=== PATIENT | female | born 1985 | race African-American/Black ===

== ENCOUNTER 2021-07-27 09:11 | Outpatient (CLI) | payer OTHER, SELFPAY ==
[2021-07-27 10:41] LABS: Hematocrit 37.1 % (37.0-47.0); Hemoglobin 12.8 g/dL (12.0-15.0); Mean Corpuscular HGB Conc 34.5 g/dl (32-36); Mean Corpuscular Hemoglobin 31.4 pg (26-34); Mean Corpuscular Volume 91.2 fl (80-100); Mean Platelet Volume 10.1 fl (7.4-10.4); Platelet Count Result 267 k/mm3 (150-375); Red Blood Count 4.07 M/mm3 (4.2-5.4); Red Cell Distribution Width 13.7 % (11.5-14.5); White Blood Count 6.4 K/mm3 (4.5-10.0)
[2021-07-27 11:18] LABS: HIV 1/2 Ab P24 Ag Result Negative (Negative)
[2021-07-27 11:27] LABS: Hepatitis B Surface Antigen Negative (Negative); Rubella IgG Antibody 79.9 IU/ML
[2021-07-29 10:41] LABS: Rapid Plasma Reagin Non-Reactive (NonReactive)
== END 2021-07-27 09:12 | disposition home or self-care (01) ==
PROVIDERS: Visit Provider Obstetrics & Gynecology
DX: N92.5 Other specified irregular menstruation (principal)
CPT/HCPCS: 36415; 84702; 85027; 86592; 86644; 86703; 86747; 86762; 86787; 86850; 86900; 86901; 87086; 87088; 87340; G0432

== ENCOUNTER 2021-12-03 13:39 | Outpatient (CLI) | payer OTHER, SELFPAY ==
[2021-12-03 14:10] LABS: Basophils Percent Auto 0.3 % (0.2-1.2); Eosinophils Percent Auto 0.4 % (0-4.4); Hematocrit 34.7 % (37.0-47.0); Hemoglobin 11.6 g/dL (12.0-15.0); Immature Granulocyte Absolute 0.06 K/mm3 (0.00-0.031); Immature Granulocyte Percent A 0.8 % (0-0.5); Lymphocytes Absolute Auto 1.21 K/mm3 (0.9-3.2); Lymphocytes Percent Auto 16.5 % (18.3-44.2); Mean Corpuscular HGB Conc 33.4 g/dl (32-36); Mean Corpuscular Volume 95.6 fl (80-100); Mean Platelet Volume 10.8 fl (7.4-10.4); Monocytes Absolute Auto 0.7 K/mm3 (0.1-0.6); Monocytes Percent Auto 8.8 % (2.6-8.5); Neutrophils Absolute Auto 5.4 K/mm3 (1.3-6.7); Neutrophils Percent Auto 73.2 % (45.5-73.1); Platelet Count Result 218 k/mm3 (150-375); Red Blood Count 3.63 M/mm3 (4.2-5.4); Red Cell Distribution Width 14.6 % (11.5-14.5); White Blood Count 7.4 K/mm3 (4.5-10.0)
[2021-12-03 15:01] LABS: HIV 1/2 Ab P24 Ag Result Negative (Negative)
[2021-12-03 15:34] LABS: Glucose 1 Hour PP 50gm Dose 145 mg/dL
[2021-12-03 17:46] LABS: Thyroid Stimulating Hormone Reflex 0.438 uIU/mL (0.465-4.68)
[2021-12-03 18:57] LABS: Free T4 Free Thyroxine Reflex 0.56 ng/dL (0.78-2.19)
== END 2021-12-03 13:40 | disposition home or self-care (01) ==
PROVIDERS: Visit Provider Obstetrics & Gynecology
DX: Z34.90 Encounter for supervision of normal pregnancy, unspecified, unspecified trimester (principal); Z3A.00 Weeks of gestation of pregnancy not specified
CPT/HCPCS: 36415; 82947; 84439; 84443; 85025; 86703; G0432

== ENCOUNTER 2021-12-24 10:54 | Outpatient (CLI) | payer OTHER, SELFPAY ==
--- NOTE | ~2021-12-24 | US_ITS ---
EXAMINATION: US thyroid EXAM DATE: 12/24/2021 11:31 INDICATION: O26.899 - Other specified related conditions, u... Abnormal labs. 8 months preg nant. TECHNIQUE: Multiple grayscale and Doppler images of the thyroid were obtained (by a technologist who performed the scan) and subsequently reviewed. Individual nodules and recommendations may be reporte d in accordance with TI-RADS system as designated by the 2017 ACR White Paper TI-RADS committee. The re is no prior study for comparison. FINDINGS: The right thyroid lobe measures 7.5 x 2.2 x 2.2 cm, the left measuring 6.6 x 2.3 x 2.4 cm. Homogeneou s thyroid echogenicity. Dimensions are moderately enlarged. There is a 5 mm left thyroid lobe nodule not likely clinically significant. IMPRESSION: Moderate thyromegaly. Reviewed, dictated and finalized at location B. IGERATION SYSTEMS INSTALLER IMPRESSION: Moderate thyromegaly.
--- NOTE | ~2021-12-24 | US_ITS ---
US abdomen limited INDICATION: Abdomen pain and discomfort PROCEDURE: Realtime right upper abdominal ultrasound. COMPARISON: No prior studies for comparison. FINDINGS: The pancreas is normal without focal mass or pancreatic ductal dilation. Liver echotexture is normal without focal mass or intrahepatic biliary dilatation. There is normal directional flow i n the portal vein. The gallbladder is normal without stones, gallbladder wall thickening or pericholecystic fluid. Comm on bile duct measures 4 mm. No sonographic Leal's sign. Right renal echotexture is normal. IMPRESSION: 1: Normal limited abdominal ultrasound. Reviewed, dictated and finalized at location A. CTOR OF CULTURE
== END 2021-12-24 10:55 ==
PROVIDERS: Visit Provider Obstetrics & Gynecology
DX: O26.899 Other specified pregnancy related conditions, unspecified trimester (principal); Z3A.00 Weeks of gestation of pregnancy not specified
CPT/HCPCS: 76536; 76705

== ENCOUNTER 2022-01-03 11:05 | Outpatient (CLI) | payer OTHER, SELFPAY ==
[2022-01-03 11:39] LABS: Alanine Aminotransferase 10 U/L (4-35); Albumin Level 3.9 g/dL (3.5-5.1); Alkaline Phosphatase 71 U/L (38-126); Anion Gap 6 mmol/L (8-16); Aspartate Amino Transferase 22 U/L (14-36); Bilirubin,Total 0.4 mg/dL (0.2-1.3); Blood Urea Nitrogen 9 mg/dL (7-17); Calcium 8.3 mg/dL (8.4-10.2); Carbon Dioxide 22 mmol/L (22-30); Chloride 107 mmol/L (98-107); Estimated Glomerular Filt Rate > 60; Glucose 85 mg/dL (65-110); Lipase 229 U/L (23-300); Potassium 3.7 mmol/L (3.4-5.0); Sodium 135 mmol/L (137-145)
[2022-01-03 11:43] LABS: Glucose Fasting Gestational 84 mg/dL (>/=95)
[2022-01-03 12:10] LABS: Thyroid Stimulating Hormone 0.768 uIU/mL (0.465-4.680)
[2022-01-03 12:26] LABS: Free T4 Free Thyroxine 0.65 ng/mL (0.78-2.19)
[2022-01-03 12:40] LABS: Thyroid Stimulating Hormone Reflex 0.745 uIU/mL (0.465-4.68)
[2022-01-03 13:30] LABS: Glucose 1 Hour Gest 150 mg/dL (>/=180)
[2022-01-03 14:56] LABS: Glucose 2 Hour Gest 144 mg/dL (>/= 155)
[2022-01-03 15:31] LABS: Glucose 3 Hour Gest 112 mg/dL (>/=140)
[2022-01-07 06:33] LABS: GGT 6 U/L (3-50)
== END 2022-01-03 11:06 | disposition home or self-care (01) ==
LOC: ANHLAB 11:06
PROVIDERS: Visit Provider Obstetrics & Gynecology
DX: O26.899 Other specified pregnancy related conditions, unspecified trimester (principal); R10.9 Unspecified abdominal pain; R73.09 Other abnormal glucose; Z3A.00 Weeks of gestation of pregnancy not specified
CPT/HCPCS: 36415; 80053; 82951; 82952; 82977; 83690; 84439; 84443

== ENCOUNTER 2022-02-17 12:06 | Outpatient (CLI) | payer OTHER, SELFPAY ==
[2022-02-17 12:46] LABS: Hematocrit 32.2 % (37.0-47.0); Hemoglobin 10.8 g/dL (12.0-15.0); Mean Corpuscular HGB Conc 33.5 g/dl (32-36); Mean Corpuscular Hemoglobin 31.4 pg (26-34); Mean Corpuscular Volume 93.6 fl (80-100); Mean Platelet Volume 11.1 fl (7.4-10.4); Platelet Count Result 221 k/mm3 (150-375); Red Blood Count 3.44 M/mm3 (4.2-5.4); Red Cell Distribution Width 14.5 % (11.5-14.5); White Blood Count 5.2 K/mm3 (4.5-10.0)
[2022-02-17 13:17] LABS: Atypical Lymphocytes Present; Band Neutrophils Percent 1 % (0-6); Basophils Absolute Manual 0.05 K/mm3 (0.0-0.1); Basophils Percent Manual 1 % (0-1); Monocytes Absolute Manual 0.36 K/mm3 (0.1-0.90); Monocytes Percent Manual 7 % (3-9); Neutrophils Absolute Manual 3.27 K/mm3 (1.7-7.2); Neutrophils Percent Manual 62 % (46-73); Platelet Estimate Adequate (Adequate); Total Cells Counted 100
[2022-02-18 11:22] LABS: Rapid Plasma Reagin Non-Reactive (NonReactive)
== END 2022-02-17 12:07 | disposition home or self-care (01) ==
LOC: ANHOBOP 12:09
PROVIDERS: Visit Provider Obstetrics & Gynecology
DX: Z34.93 Encounter for supervision of normal pregnancy, unspecified, third trimester (principal); Z3A.00 Weeks of gestation of pregnancy not specified
CPT/HCPCS: 36415; 85025; 86592; 86850; 86900; 86901

== ENCOUNTER 2022-02-19 07:11 | Inpatient (IN) | payer OTHER, MEDICAID, SELFPAY ==
[2022-02-19] VITALS (43 sets, daily range): BP systolic 102–124; BP diastolic 22–83; PULSE 52–127; RESP 12–20; TEMP 36.2–36.9; O2SAT 90–100; BMI 33.3
--- NOTE | 2022-02-19 06:52 | P.HP_ITS ---
H&P: HPI History of Present Illness Date/Time: 02/19/22 06:52 [age] year female 3 para 2001 presents at 39 weeks gestation for repeat delivery. She has had 2 prior term deliveries the 1st 1 breech presentation and the 2nd for repeat. We have discussed tubal ligation and she declines. records are on the chart with no significant abnormalities or complications during this . Chief Complaint: Review of Systems Review of Systems: All systems reviewed & are unremarkable except as noted in HPI and below PMFSH Surgical History Surgical History Delivery by section (~02/28/12) Breech - 11/03/2013- repeat Family History Family History Mother Diabetes mellitus Mother Hypertension Other Malignant melanoma of rectum Social History Social History Smoking status: Never smoker Alcohol intake: never Substance use: never Gender identity (if verbalized by the patient): Female Sexual Orientation (if Verbalized by the Patient): Straight or Heterosexual Spiritual care concerns: No Meds Home Medications and Allergies Home Medications Medication Instructions Recorded Confirmed Type aspirin 81 mg tablet,delayed 81 mg PO DAILY 12/24/21 02/10/22 History release Allergies Allergy/AdvReac Type Severity Reaction Status Date / Time No Known Allergies Allergy Verified 02/10/22 09:36 Exam 2 Const: General: cooperative, healthy appearing and comfortable Resp: Effort & Inspection: normal respiratory effort Auscultation: clear to auscultation bilaterally Cardio: Rate: regular rate Rhythm: regular rhythm GI: Auscultation: normal bowel sounds : External Female Exam: normal external appearance Bimanual exam- vagina & uterus: enlarged (Fundal height 39cm heart tones 140) Assessment and Plan Assessment and plan (1) 39 weeks gestation of : Code(s): Z3A.39 - 39 weeks gestation of Status: Acute (2) History of delivery: Code(s): Z98.891 - History of uterine scar from previous surgery Status: Acute (3) AMA (advanced maternal age) multigravida 35+: Code(s): O09.529 - Supervision of elderly multigravida, unspecified trimester Status: Acute Additional Plan Proceed with repeat delivery.
--- NOTE | 2022-02-19 06:56 | WPDHPUPDATE1 ---
History and Physical Update Update Date/Time: 02/19/22 06:56 History and Physical has been reviewed, including an updated exam of the patient. There are NO changes in the patient's condition. Risks, benefits, and alternatives have been discussed and questions answered. Patient agrees to proceed with procedure.
--- NOTE | 2022-02-19 06:59 | P.PNAN_ITS ---
Anes - Initial Pre Proc Eval Procedure: Operation Date: 02/19/22 09:00 Proposed Procedures p Repeat Section - Francois Sharp MD Date/Time: 02/19/22 06:59 Surgeon: Francois Sharp MD Pre Op Diagnosis: prior csection Patient Data Age: 36 Gender: F Height: Weight: Allergies Allergy/AdvReac Type Severity Reaction Status Date / Time No Known Allergies Allergy Verified 02/19/22 09:19 Home Medications Medication Instructions Recorded Confirmed Type aspirin 81 mg tablet,delayed 81 mg PO DAILY 12/24/21 02/19/22 History release PNV cmb#95-ferrous fumarate-FA 1 tablet PO DAILY 02/19/22 02/19/22 History [] Patient hx anesthesia problems: none Family hx anesthesia problems: none Results Review: All pre-operative results and documents have been reviewed as part of the pre-operative evaluation. [facility], [facility] Surgical History Surgical History Delivery by section (~02/28/12) Breech - 11/03/2013- repeat Family History Family History Mother Diabetes mellitus Mother Hypertension Other Malignant melanoma of rectum Social History Social History Smoking status: Never smoker Second hand tobacco smoke exposure: No Alcohol intake: never Substance use: never Gender identity (if verbalized by the patient): Female Sexual Orientation (if Verbalized by the Patient): Straight or Heterosexual Spiritual care concerns: No Anes - Eval Final PreProcedure Day of Procedure 02/19/22 06:59 Patient weight: overweight Heart: regular rate and rhythm Lungs: clear to auscultation and normal air movement Airway: Mallampati scale class II Neurological: alert and oriented Last oral intake: >/= 8 hours ASA classification: II Emergent: no Anesthetic plan: proceed Anesthesia type and monitoring: regional spinal Results Review: All pre-operative results and documents have been reviewed as part of the pre-operative evaluation. Informed Consent: The patient's anesthetic plan and its attendant risks and benefits were discussed with the patient/family/POA. Questions were solicited and answers provided to the satisfaction of the patient/family/POA.
[2022-02-19] MEDS: LACTATED RINGERS 1,000 ML 999 ML IV CONT (08:10)
--- NOTE | 2022-02-19 08:31 | LDADM ---
This patient, Tomeka Gorman, was admitted to Labor/Delivery/Recovery 119 on 02/19/22 at 07:11. Plans for surgery/ pain management were discussed with patient. Patient/family oriented to hospital policies and general routines including ID bracelet, bed and alarms, visiting hours, pain management, procedures, bathroom and other care routines, personal items, smoking policy, room service/diet and guest tray routines, security routines, and visiting hours. Patient/Family are encouraged to report perceived risks to care and to ask questions if they do not understand what they are told or what they should do.
[2022-02-19] MEDS: ceFAZolin 2 GM/D5W 50 ML 2 GM/50 ML BAG IVPB (09:22)
[2022-02-19] MEDS: KETOROLAC 30 MG/ML VIAL (*BKC) 15 MG IV PUSH (10:20)
--- NOTE | 2022-02-19 11:03 | P.PCNOB_ITS ---
OB - Delivery Note Procedure Procedure: Procedures Operation Date: 02/19/22 09:00 <No data on this case meets the specified criteria> Events: Previous Delivery Route of delivery: Specimen: No Quantitative Blood Loss (ml): 410 Anesthesia type: Spinal Disposition: PACU Narrative: Patient prepped draped usual manner for this procedure. Pfannenstiel incision was made which was carried down to the fascia. Fascial incision was then extended bilaterally the length of the skin incision. Fascia was then sharply and bluntly dissected away from the rectus muscles. Peritoneum was entered without difficulty. Uterus visualized and bladder flap was developed. Uterus was scored in the lower segment was extended bilaterally the length of lower segment. Vertex was delivered without difficulty cord clamped and cut and the baby was passed off the operative field. Placenta was then manually removed and the uterine cavity was cleared of membranes and clots. Uterus was exteriorized and closed using 0 Monocryl in a running interlocking manner to approximate and rendered hemostatic the lower segment. Thirty evaluation revealed the uterus in to be intact and firm. Uterus was returned to the abdomen gutters were cleared of serosanguineous fluid and clots and uterine incision again noted be hemostatic. Fascia was approximated using 0 Vicryl from the left angle midline the right angle midline in a running manner with good approximation and hemostasis noted. Subcutaneous tissue approximated after it was rendered hemostatic. Skin shu were then used to approximate the edges and the patient was sent to recovery room in stable condition. [place] Baby Weeks of gestation at delivery: 39 Infant gender: Female Weight (pounds): 6 Weight (ounces): 9 presentation: vertex Placenta delivery description: Manual Removal Cord Vessel Description: 3 Vessels score one minute: 8 score five minutes: 9 AMG Delivery Billing Delivery Delivery: Delivery Charge
[2022-02-19] MEDS: MORPHINE SULFATE INJ (*CRX) 10 MG/ML AMP 2 MG IV PUSH ×4 (11:25→12:45)
[2022-02-19] MEDS: KETOROLAC 30 MG/ML VIAL (*BKC) IV PUSH ×2 (13:45→22:10)
--- NOTE | 2022-02-19 14:10 | OBPPTRN ---
1320-Patient transferred to post room #280 via stretcher. Support person present. Oriented to unit, room, information board, rooming in, admission packet and security measures. Patient verbalizes understanding.
[2022-02-19] MEDS: DOCUSATE SODIUM 100 MG CAPSULE PO (16:37)
[2022-02-19] MEDS: HYDROcodone/acetaminophen (*CRX) 5-325 MG TABLET 1 TAB PO (16:37)
[2022-02-19] MEDS: DEXTROSE 5%/0.45% SOD CHL 1,000 ML 125 ML IV CONT (17:57)
[2022-02-19] MEDS: HYDROcodone/acetaminophen (*CRX) 10-325 MG TABLET 1 TAB PO (19:14)
[2022-02-19] MEDS: diphenhydrAMINE HCl CAP 25 MG CAPSULE PO (22:27)
[2022-02-20] MEDS: KETOROLAC 30 MG/ML VIAL (*BKC) IV PUSH ×2 (04:29→16:20)
[2022-02-20] MEDS: HYDROcodone/acetaminophen (*CRX) 5-325 MG TABLET 1 TAB PO ×2 (04:29→16:21)
[2022-02-20 04:40] VITALS: BP 113/63; PULSE 77; RESP 20; TEMP 36.6
[2022-02-20 05:45] LABS: Basophils Percent Auto 0.2 % (0.2-1.2); Eosinophils Percent Auto 0.5 % (0-4.4); Hematocrit 28.2 % (37.0-47.0); Hemoglobin 9.6 g/dL (12.0-15.0); Immature Granulocyte Absolute 0.03 K/mm3 (0.00-0.031); Immature Granulocyte Percent A 0.5 % (0-0.5); Lymphocytes Absolute Auto 0.77 K/mm3 (0.9-3.2); Lymphocytes Percent Auto 12.3 % (18.3-44.2); Mean Corpuscular Hemoglobin 31.9 pg (26-34); Mean Corpuscular Volume 93.7 fl (80-100); Mean Platelet Volume 11.5 fl (7.4-10.4); Monocytes Absolute Auto 0.4 K/mm3 (0.1-0.6); Monocytes Percent Auto 6.4 % (2.6-8.5); Neutrophils Percent Auto 80.1 % (45.5-73.1); Platelet Count Result 176 k/mm3 (150-375); Red Blood Count 3.01 M/mm3 (4.2-5.4); Red Cell Distribution Width 14.2 % (11.5-14.5); White Blood Count 6.3 K/mm3 (4.5-10.0)
[2022-02-20] MEDS: HYDROcodone/acetaminophen (*CRX) 10-325 MG TABLET 1 TAB PO ×3 (07:24→20:59)
[2022-02-20 08:50] VITALS: BP 108/62; PULSE 84; RESP 18; TEMP 37.1; O2SAT 97
[2022-02-20] MEDS: DOCUSATE SODIUM 100 MG CAPSULE PO ×2 (10:32→16:21)
[2022-02-20] MEDS: MULTIVIT/MIN/PREN/FOL AC/IRON TABLET 1 TAB PO (10:32)
[2022-02-20] MEDS: IBUPROFEN 600 MG TABLET PO (10:32)
--- NOTE | 2022-02-20 10:35 | P.PNOB_ITS ---
OB - PN: Subj Subjective Date/time seen: 02/20/22 10:35 36-year-old female status post repeat and postoperative day 1. Did have trouble with her spinal and complains today of mild low back pain and some headache as well. Incisional pain also significant though somewhat treated with her oral pain medications. Is eating regular diet not have any nausea vomiting. OB - PN: Obj Data Labs CBC & Chem 7: 02/20/22 04:39 Labs: Laboratory Results - last 24 hr 02/20/22 04:39 WBC 6.3 RBC 3.01 L Hgb 9.6 L Hct 28.2 L MCV 93.7 MCH 31.9 MCHC 34.0 RDW 14.2 Plt Count 176 MPV 11.5 H Immature Gran % (Auto) 0.5 Neut % (Auto) 80.1 H Lymph % (Auto) 12.3 L [place] % (Auto) 6.4 Eos % (Auto) 0.5 Baso % (Auto) 0.2 Lymph # (Auto) 0.77 L [place] # (Auto) 0.4 Eos # (Auto) 0.0 Baso # (Auto) 0.0 Abs Immat Gran (auto) 0.03 Absolute Neuts (auto) 5.0 Absolute Nucleated RBC 0.0 Nucleated RBC % 0.0 OB - PN A/P Assessment and Plan (1) care and examination: Code(s): Z39.2 - Encounter for routine follow-up Status: Acute (2) Headache after spinal puncture: Code(s): G97.1 - Other reaction to spinal and lumbar puncture Status: Acute Assessment and Plan: we discussed conservative measures at this point. Anesthesia Will discuss with her further when they make rounds today. Plan day: 1 Plan: routine care Time Spent With Patient Time: Total time spent is greater than 50% in coordination of care (as documented) at patient's floor/unit and/or counseling patient: Time with patient: 15 - 25 minutes Exam Narrative: Vital signs are stable Abdomen is soft and appropriately tender. With the incision covered and bandage dry.
--- NOTE | 2022-02-20 12:33 | WPDANLDNPN2 ---
Anes-Prog Note L&D-Neuraxial Date/Time: 02/20/22 12:33 Neuraxial medications: intrathecal PF morphine Opiod-related complaints: none Patient feedback: Patient satisfied with post-operative pain management.
--- NOTE | 2022-02-20 12:33 | WPDANLDPN2 ---
Anes-Prog Note L&D Date/Time: 02/20/22 12:33 Comfortable throughout: section Neuraxial method: spinal Epidural/Spinal procedure site: back pain Neuro status: Neuro function grossly intact. Cardiovascular status: normal Respiratory status: normal Airway patency: baseline Mental status: baseline and other Post-Op hydration status: normal Vital Signs: Last Vital Signs Temp 37.1 C 02/20/22 08:50 Pulse 84 02/20/22 08:50 Resp 18 02/20/22 08:50 BP 108/62 02/20/22 08:50 Pulse Ox 97 02/20/22 08:50 Pain score (VAS): 5 I/O: Intake & Output 02/19/22 02/20/22 02/20/22 23:59 07:59 15:59 Intake Total 500 1500 Output Total 250 1600 Balance 250 -100 Post-procedural complaints: none Patient feedback: Patient satisfied with anesthetic care.
[2022-02-20] MEDS: CYCLOBENZAPRINE HCL 10 MG TABLET PO ×2 (13:12→21:46)
[2022-02-20] MEDS: POLYSACCHARIDE IRON COMPLEX 150 MG CAPSULE PO (16:21)
[2022-02-20 19:05] VITALS: BP 104/61; PULSE 92; RESP 18; TEMP 36.6; O2SAT 98
[2022-02-21] MEDS: KETOROLAC 30 MG/ML VIAL (*BKC) IV PUSH ×4 (01:05→20:24)
[2022-02-21 07:40] VITALS: BP 115/72; PULSE 83; RESP 16; TEMP 36.7; O2SAT 98
[2022-02-21] MEDS: HYDROcodone/acetaminophen (*CRX) 5-325 MG TABLET 1 TAB PO ×3 (07:59→14:28)
[2022-02-21] MEDS: CYCLOBENZAPRINE HCL 10 MG TABLET PO ×2 (08:00→16:31)
[2022-02-21] MEDS: DOCUSATE SODIUM 100 MG CAPSULE PO ×2 (08:00→16:31)
[2022-02-21] MEDS: POLYSACCHARIDE IRON COMPLEX 150 MG CAPSULE PO ×2 (08:00→16:31)
[2022-02-21] MEDS: MULTIVIT/MIN/PREN/FOL AC/IRON TABLET 1 TAB PO (08:00)
--- NOTE | 2022-02-21 08:49 | PM.OBDSVD ---
DS: Admitting Diagnosis Discharge Date [id number] Admitting Diagnosis OB - DS: Summary OB Procedures : None OB Procedures Intrapartum: OB Procedures: : None Peripartum Data Procedures: Procedures Operation Date: 02/19/22 09:00 Actual Procedure Side Surgeon p Section Francois Sharp MD Time Spent with Patient Time attestation: Total time spent providing and/or coordinating discharge services: Discharge Plan Discharge Discharging Clinician: Francois Sharp Patient Disposition: Home, Self-Care Activity: as tolerated Diet: as tolerated Wound Care Instructions: incision open to air Discharge Instructions: return to office Thursday or Thursday for staple removal Patient Instructions: Antibiotic Form Stand Alone Forms: General Discharge Information Follow-up/Referrals: Francois Sharp MD [Physician] - 3 Weeks Discharge Medications: New hydrocodone-acetaminophen 5-325 mg Tablet 1 tablet PO Q3H PRN (Reason: Moderate Pain (4-6)) Qty: 30 RF: 0 ibuprofen 600 mg Tablet 600 mg PO Q6H PRN (Reason: Cramping) Qty: 30 RF: 0 cyclobenzaprine 10 mg Tablet 10 mg PO Q8H PRN (Reason: Muscle Spasm, back pain) Qty: 21 RF: 0 Continued PNV cmb#95-ferrous fumarate-FA [] 28 mg iron- 800 mcg Tablet 1 tablet PO DAILY RF: 0 Discontinued aspirin 81 mg tablet,delayed release (DR/EC) 81 mg PO DAILY RF: 0 Date of admission: 02/19/22 07:11 Primary Care Provider: PHYSICIAN,SECTION SUPERVISOR Admitting Provider: Francois Sharp Attending physician on admission: Francois Sharp Condition: Stable
--- NOTE | 2022-02-21 13:52 | WPDANLDPN2 ---
Anes-Prog Note L&D Date/Time: 02/21/22 13:52 Comfortable throughout: section Neuraxial method: spinal Epidural/Spinal procedure site: back pain Neuro status: Neuro function grossly intact. Cardiovascular status: normal Respiratory status: normal Airway patency: baseline Mental status: baseline and other Post-Op hydration status: normal Vital Signs: Last Vital Signs Temp 98.1 F 02/21/22 07:40 Pulse 83 02/21/22 07:40 Resp 16 02/21/22 07:40 BP 115/72 02/21/22 07:40 Pulse Ox 98 02/21/22 07:40 Pain score (VAS): 5/10 I/O: Intake & Output 02/20/22 02/21/22 02/21/22 23:59 07:59 15:59 Intake Total 120 Balance 120 Post-procedural complaints: none Patient feedback: Spoke to pt about back pain, reassured her that her site looks good (no s/s of infection) and that musculoskeletal pain after her c section and spinal placement is normal. Encouraged her to continue her muscle relaxants and pain medications as prescribed. Patient satisfied with anesthetic care.
[2022-02-21] MEDS: HYDROcodone/acetaminophen (*CRX) 10-325 MG TABLET 1 TAB PO ×2 (19:41→23:33)
[2022-02-21 19:45] VITALS: BP 114/70; PULSE 80; RESP 18; TEMP 36.8; O2SAT 100
[2022-02-22] MEDS: CYCLOBENZAPRINE HCL 10 MG TABLET PO ×3 (01:15→18:21)
[2022-02-22] MEDS: HYDROcodone/acetaminophen (*CRX) 10-325 MG TABLET 1 TAB PO ×3 (02:18→10:03)
[2022-02-22] MEDS: KETOROLAC 30 MG/ML VIAL (*BKC) IV PUSH ×3 (04:15→22:27)
[2022-02-22 04:20] VITALS: BP 109/66; PULSE 66; RESP 18; TEMP 36.4; O2SAT 98
[2022-02-22 09:50] VITALS: BP 115/63; PULSE 91; RESP 18; TEMP 36.3
[2022-02-22] MEDS: DOCUSATE SODIUM 100 MG CAPSULE PO ×3 (10:03→16:14)
[2022-02-22] MEDS: IBUPROFEN 600 MG TABLET PO (10:03)
[2022-02-22] MEDS: MULTIVIT/MIN/PREN/FOL AC/IRON TABLET 1 TAB PO (10:03)
[2022-02-22] MEDS: POLYSACCHARIDE IRON COMPLEX 150 MG CAPSULE PO ×2 (10:03→17:19)
[2022-02-22] MEDS: TETANUS,DIPHTHERIA,AC PERTUSSIS ADULT (0.5 ML) BOOSTRIX IM (10:06)
--- NOTE | 2022-02-22 11:37 | P.PNOB_ITS ---
OB - PN: Subj Subjective Date/time seen: 02/22/22 11:37 Patient comments: other (complaint continues of back and neck pain not well controlled with current meds) [place] baby status: doing well OB - PN: Obj Data Labs CBC & Chem 7: 02/20/22 04:39 OB - PN A/P Plan day: 3 Plan: routine care Comments: Due to pain management not adequate, will change to percocet. If that works, will dc home with that instead of [place]. Time Spent With Patient Time: Total time spent is greater than 50% in coordination of care (as documented) at patient's floor/unit and/or counseling patient: Exam Narrative: inc c/d/i : Bimanual exam- vagina & uterus: other (Uterus firm, nt @U)
[2022-02-22] MEDS: oxyCODONE/ACETAMINOPHEN (*CRX) 5-325 MG TABLET 2 TABLET PO ×3 (13:50→22:26)
[2022-02-22 19:30] VITALS: BP 125/74; PULSE 92; RESP 16; TEMP 36.7; O2SAT 99
[2022-02-23] MEDS: CYCLOBENZAPRINE HCL 10 MG TABLET PO ×2 (02:23→10:36)
[2022-02-23] MEDS: oxyCODONE/ACETAMINOPHEN (*CRX) 5-325 MG TABLET 2 TABLET PO ×2 (02:23→08:16)
[2022-02-23] MEDS: KETOROLAC 30 MG/ML VIAL (*BKC) IV PUSH ×2 (04:26→10:42)
[2022-02-23] MEDS: POLYSACCHARIDE IRON COMPLEX 150 MG CAPSULE PO (08:15)
[2022-02-23] MEDS: MULTIVIT/MIN/PREN/FOL AC/IRON TABLET 1 TAB PO (08:15)
[2022-02-23] MEDS: DOCUSATE SODIUM 100 MG CAPSULE PO (08:16)
[2022-02-23 08:30] VITALS: BP 145/84; PULSE 75; RESP 20; TEMP 36.6; O2SAT 99
--- NOTE | 2022-02-23 09:55 | PC.NURSE ---
Patient viewed the discharge video Mother & Baby Care, The First Two Weeks . Patient was given the opportunity and encouraged to ask questions. Patient verbalized understanding of information shared and has been given the mother/baby guide for home reference.
--- NOTE | 2022-02-23 10:27 | PM.OBPNVD ---
OB - PN: Subj Subjective Date/time seen: 02/23/22 10:27 Patient comments: other ( patient states pain is continuing in her neck and back but is improved) [place] baby status: doing well OB - PN: Obj Data Labs CBC & Chem 7: 02/20/22 04:39 OB - PN A/P Plan day: 4 Plan: routine care and discharge home Comments: will discharge home with Flexeril, percocet, and oral Toradol Time Spent With Patient Time: Total time spent is greater than 50% in coordination of care (as documented) at patient's floor/unit and/or counseling patient: Exam Narrative: appears comfortable incision clean dry and intact : Bimanual exam- vagina & uterus: other (Uterus firm, nt @U)
--- NOTE | 2022-03-02 13:05 | PM.OBDSVD ---
DS: Admitting Diagnosis Discharge Date 02/23/22 Admitting Diagnosis OB - DS: Summary OB Procedures : None OB Procedures Intrapartum: OB Procedures: : None Peripartum Data Procedures: Procedures Operation Date: 02/19/22 09:00 Actual Procedure Side Surgeon p Section Francois Sharp MD Time Spent with Patient Time attestation: Total time spent providing and/or coordinating discharge services: Discharge Plan Discharge Consulting providers: Mary Beth Howe ; Pancho Ellis ; Angelina Galvan ; Santiago Green Discharging Clinician: Francois Sharp Patient Disposition: Home, Self-Care Activity: as tolerated Diet: as tolerated Wound Care Instructions: incision open to air Discharge Instructions: return to office Thursday or Thursday for staple removal Education: Mom and Baby Guide Given to: Mother Follow-Up: Call your delivering provider's office for an appointment to be seen in: 3 weeks Mom and baby should come to the [facility] for the follow-up appointment. Appointment Date/Time: February 24, 2022 at 8:00 am What to expect at your follow-up visit: Physical Assessment Call [phone] if you are unable to keep your appointment time. BREAST CARE: * Wear a snug supportive bra. * For engorgement discomfort: Bottle Feeding: * May apply ice packs ABDOMINAL INCISION: (if applicable) * Allow incision to air dry * Do NOT use lotions for powders on your incision * When showering, allow soap and water to run over the incision, but do not wash incision EPISIOTOMY/PERINEAL CARE: * Until bleeding stops, use your josselin bottle after urinating * Change your pad frequently throughout the day * No tub baths until seen by your physician - You may shower ACTIVITY: * Rest as much as possible. * Do not exercise or lift anything heavier than your baby (such as laundry or other children.) * Avoid stairs or driving as much as possible. * Do not put anything into the vagina. No douching, tampons, or sexual activity until seen by physician. NOTIFY PHYSICIAN IF YOU HAVE ANY QUESTIONS OR IF ANY OF THE FOLLOWING SYMPTOMS OCCUR: * If your incision becomes red, swollen, or more painful than what you have experienced in the hospital. * If your vaginal bleeding becomes foul smelling. * If your vaginal bleeding becomes more heavy than a period or if your bleeding changes from pink to bright red. However, you may pass an occasional walnut-sized clot once or twice for the first week . * If you experience a sharp, shooting pain in you calves. * If you discover a hard, reddened area on your breast or if you experience flu-like symptoms. DIET: * Eat regular, well-balanced meals. * Drink plenty of fluids daily. If , drink to thirst. Stand Alone Forms: General Discharge Information Follow-up/Referrals: Francois Sharp MD [Physician] - 3 Weeks Discharge Medications: New cyclobenzaprine 10 mg Tablet 10 mg PO Q8H PRN (Reason: Muscle Spasm, back pain) Qty: 21 RF: 0 oxycodone-acetaminophen 5-325 mg Tablet 1 tablet PO Q4H PRN (Reason: Pain Rated 7-10) Qty: 30 RF: 0 ketorolac 10 mg tablet 10 mg PO Q6H PRN (Reason: pain) 5 Days Qty: 20 RF: 0 Continued PNV [id number] fumarate-FA [] 28 mg iron- 800 mcg Tablet 1 tablet PO DAILY RF: 0 Discontinued aspirin 81 mg tablet,delayed release (DR/EC) 81 mg PO DAILY RF: 0 No Action [id number] [Fioricet] 50-300-40 mg capsule 1 cap PO Q8H PRN (Reason: pain) Qty: 30 RF: 0 Date of admission: 02/19/22 07:11 Primary Care Provider: PHYSICIAN,FINISHING P[employer]DER [employer]ESS OPERATOR Admitting Provider: Francois Sharp Attending physician on admission: Francois Sharp Condition: Stable
== END 2022-02-23 11:55 | disposition home or self-care (01) | DRG 788 ==
LOC: ANHLDR 07:19 → ANHOB2 13:43
PROVIDERS: Admitting Provider Obstetrics & Gynecology; Visit Provider Obstetrics & Gynecology
PROC: 10D00Z1 Extraction of Products of Conception, Low, Open Approach (ICD-10-PCS; CPT 59514; principal; 2022-02-19 09:00)
DX: O34.211 Maternal care for low transverse scar from previous cesarean delivery (principal); Z37.0 Single live birth; Z3A.39 39 weeks gestation of pregnancy; O32.1XX0 Maternal care for breech presentation, not applicable or unspecified; O89.4 Spinal and epidural anesthesia-induced headache during the puerperium
CPT/HCPCS: 36415; 85025; 86592; 86850; 86900; 86901; 90715; A9270; J0131; J0690; J1100; J1885; J2270; J2274; J2370; J2405; J2590; J7120

== ENCOUNTER 2022-02-24 08:39 | Outpatient (CLI) | payer OTHER, MEDICAID, SELFPAY ==
--- NOTE | 2022-02-24 09:24 | PC.NURSE ---
0910--/ Jared at bedside to assess pt. Plan of care discussed. Pt and SO will rest and decide if they will consent to a blood patch. Dr. Coleman will revisit pt in one hour.
--- NOTE | 2022-02-24 09:35 | PC.NURSE ---
0845--Pt educated on lying flat and reports that headache is a little better while in this position.
[2022-02-24] MEDS: ACETAMINOPHEN/BUTALBITAL/CAFFEINE 325-50-40 MG TABLET (FIORICET) 1 TAB PO (11:36)
[2022-02-24] MEDS: COSYNTROPIN 0.25 MG/ML VIAL 1 MG IV PUSH (11:36)
--- NOTE | 2022-02-24 12:30 | PC.NURSE ---
1017--Dr. Coleman at bedside to discuss blood patch again. Alternative medications discussed. Pt and SO decide to try PO med and IV push med and DC to home to see if headache will resolve. Instruction given per to drink 1/2-1 gallon of water daily, lie flat as much as possible, add caffeine to intake and continue taking prescribed DC meds.
--- NOTE | 2022-02-24 12:36 | PC.NURSE ---
1135--Pt reports feeling a little bit better.
--- NOTE | 2022-02-24 12:41 | PC.NURSE ---
1155-Pt ambulated to waiting car in drive-up
--- NOTE | 2022-02-24 12:47 | PC.NURSE ---
0859--report received from follow-up RN. REDDY. Possible spinal headache evaluation.
== END 2022-02-24 11:55 | disposition home or self-care (01) ==
LOC: ANHOBOP 08:46 → ANHOBPP 08:47
PROVIDERS: Visit Provider Obstetrics & Gynecology
DX: R51.9 Headache, unspecified (principal); G97.1 Other reaction to spinal and lumbar puncture
CPT/HCPCS: 96374; 99199; A9270; J0834

== ENCOUNTER 2022-02-27 10:00 | Outpatient (CLI) | payer OTHER, MEDICAID, SELFPAY ==
[2022-02-27] VITALS (17 sets, daily range): BP systolic 117–147; BP diastolic 66–85; PULSE 68–99; RESP 12; TEMP 36.8; O2SAT 97–99
--- NOTE | 2022-02-27 10:26 | WPDANESEPP ---
Anes - Eval Pre Procedure Procedure: Epidural Blood patch Date/Time: 02/27/22 10:26 Surgeon: Aron Preop Diagnosis: PDPH Pre Op Diagnosis: Bloodpatch Patient Data Age: 36 Gender: F Height: Weight: Last Vital Signs Pulse 76 02/27/22 10:25 BP 127/69 02/27/22 10:25 Allergies Allergy/AdvReac Type Severity Reaction Status Date / Time No Known Allergies Allergy Verified 02/19/22 09:19 Home Medications Medication Instructions Recorded Confirmed Type PNV cmb#95-ferrous fumarate-FA 1 tablet PO DAILY 02/19/22 02/19/22 History [] cyclobenzaprine 10 mg PO Q8H PRN #21 tablet 02/21/22 Rx ketorolac 10 mg PO Q6H PRN 5 Days #20 tablet 02/23/22 Rx oxycodone-acetaminophen 1 tablet PO Q4H PRN #30 tablet 02/23/22 Rx tkjcagzbhc-iyqdjtytyubla-paivphhv 1 cap PO Q8H PRN #30 cap 02/24/22 Rx 50 mg-300 mg-40 mg capsule Patient hx anesthesia problems: none Family hx anesthesia problems: none Results Review: All pre-operative results and documents have been reviewed as part of the pre-operative evaluation. [facility] Surgical History Surgical History Delivery by section (~02/28/12) Breech - 11/03/2013- repeat Family History Family History Mother Diabetes mellitus Mother Hypertension Other Malignant melanoma of rectum Social History Social History Smoking status: Never smoker Second hand tobacco smoke exposure: No Alcohol intake: never Substance use: never Gender identity (if verbalized by the patient): Female Sexual Orientation (if Verbalized by the Patient): Straight or Heterosexual Spiritual care concerns: No Exam Day of Procedure 02/27/22 10:26 Patient weight: normal Heart: regular rate and rhythm Lungs: normal air movement Airway: Mallampati scale class II Neurological: alert and oriented Other findings: C/O 10/10 headache (frontal and back of skull/neck) Photophobia Risks: Conservative measures unsuccessful and pt requests to proceed with Epiodural Blood Patch
--- NOTE | 2022-02-27 11:11 | P.PCNANE_ITS ---
Anes - Epidural Blood Patch PN Date/Time: 02/27/22 11:11 Consent: I have discussed with the patient/family/POA, the rationale of a lumbar epidural autologous blood patch for the treatment of post-dural puncture headache (spinal headache), including associated potential risks, benefits, comp lications and side effects. I have also discussed more conservative treatment options such as intravenous hydration, caffeine and non-prescription analgesics. The patient/family/POA, understand(s) and wish(es) to proceed with epidural autologous blood patch as treatment for the patient's post-dural puncture headache. Time-Out: A pre-procedural Time-Out was completed immediately before starting the procedure and confirmed: Patient Identification, Site, Procedure, Patient Position and the Availability of Requisite Equipment. Clinical Indications: LORT to air, 7 cm to EDS, 20 ml blood drawn in sterile technique from right hand. Tolerated well. Headache resolved. Discharge instructions given to patient and male support person. VSS throughout. Epidural Insertion Note Patient position: sitting Skin prep: chlorhexidine Needle: 18 gauge Tuohy-Schliff Technique: loss of resistance Skin anesthesia: lidocaine 1% Observations: tolerated well Complications: none
--- NOTE | 2022-02-27 12:05 | PC.NURSE ---
1100--Pt. reports no headache at this time. HOB elevated and adwoa crackers and water given to pt.
--- NOTE | 2022-02-27 12:51 | PC.NURSE ---
1230--Pt. up to BR with no headache noted. DC instructions reviewed with pt. and s.o., verbalized understanding. DC'd home with instructions.
== END 2022-02-27 12:40 | disposition home or self-care (01) ==
LOC: ANHOBOP 10:04 → ANHOBPP 10:09
PROVIDERS: Visit Provider Obstetrics & Gynecology
DX: G97.1 Other reaction to spinal and lumbar puncture (principal)
CPT/HCPCS: 62273; 99199